=== PATIENT | male | born 1985 ===

== ENCOUNTER 2023-01-12 15:04 | Emergency (ER) | payer MEDICAID ==
[~2023-01-12] VITALS: Ht 185.4 cm; Wt 102.0 kg
[2023-01-12 17:08] VITALS: BP 131/77
--- NOTE | 2023-01-12 17:12 | NUR ---
Patient agittated regarding wait time. Requesting a prescription for antibiotics. When advised that he must see a provider for that to happen his agittation increases. He is escorted back to the lobby when he attempted to reopen the door and realized it was locked he punched the door. SKIN signs within normal limits, [employer] 15.
== END 2023-01-12 17:49 | disposition left against medical advice (07) ==
LOC: ER 15:05
DX: R60.0 Localized edema (principal); Z53.21 Procedure and treatment not carried out due to patient leaving prior to being seen by health care provider
CPT/HCPCS: 99281